=== PATIENT | male | born 1985 | race Caucasian/White ===

== ENCOUNTER → 2016-09-25 | Outpatient (CLI) | payer OTHER ==
[~2016-09-25] MED LIST: ACET160S78 PO; AMPH10TA2 PEG; ASPI325T45 PO; BACL10TA PO; CEPH500C2 PO; CHOL1000 PO; CITA40TA12 PEG; CLON1TAB3 PEG; CLON2TAB3 PEG; CRFL PEG; DANT25CA PEG; DAPT500I; GABA-113 PO; GENTAMICIN INSTIL; LACT10CA3 PEG; OMEP40CA18 PEG; OMEP40CA18 PO; OXYBUTYNIN PEG; POLY335019 PEG; TAMS0.4C38 PEG; TRANSDERM TD; [UNRECOGNIZED DRUG - OTHER]; [UNRECOGNIZED DRUG - OTHER] IBC; nystatin PEG
--- NOTE | 2016-09-25 15:25 | DIAGNOSTIC IMAGING REPORT ---
CERVICAL SPINE 2 OR 3 VIEWS CLINICAL HISTORY: TORTICOLLIS COMPARISON STUDY: None. FINDINGS: There is a kyphotic deformity within the cervical spine. Alignment remains intact. Bony irregularity along the anterior aspect of the C5 and C6 vertebral bodies could be due to old, old posttraumatic changes or large osteophytes. No acute fracture or subluxation. Mild dextroscoliosis. Partially visualized right subclavian catheter. Metallic plate within the left side the calvarium. Disc spaces are relatively preserved. No prevertebral soft tissue swelling. The C1-C2 interval is intact. IMPRESSION: 1. No acute fractures or subluxation within the cervical spine. 2. There is a kyphotic deformity within the cervical spine which is likely chronic. 3. Dextroscoliosis. 4. Bony irregularity along the anterior aspect of the C5 and C6 vertebral body favors old posttraumatic changes or large osteophytes. Electronically signed by: Darron Barajas M.D. 09/25/2016 3:24 PM Dictated Date/Time: 09/25/2016 3:18 PM
== END | disposition home or self-care (01) ==
LOC: C.RADBC 14:33
PROVIDERS: ATTEND Anesthesiology
DX: M43.6 Torticollis (principal)